=== PATIENT | female | born 1945 | race Caucasian/White ===

== ENCOUNTER 2019-10-28 17:06 | Emergency (ER) | payer MEDICARE, MEDICAID, SELFPAY ==
[2019-10-28 17:10] VITALS: BP 143/98; PULSE 101; RESP 18; TEMP 36.7; O2SAT 97; BMI 21.1
--- NOTE | 2019-10-28 17:21 | ED_ITS ---
Entered by Estrellita Finch, acting as scribe for Oct 28, 2019 17:06 HPI - Nausea/Vomiting/Diarrhea General: Chief complaint: Nausea/Vomiting/Diarrhea Stated complaint: N/D Time Seen by Provider: 10/28/19 17:18 Source: patient, family and RN notes reviewed Mode of arrival: ambulatory Limitations: altered mental status History of Present Illness: HPI Narrative: 74 yo female presents to ED with complaints of vomiting since last night and diarrhea today. The patient's daughter stated the patient has Alzheimer's and when she gets ill she gets really off when she becomes ill. The patient states she aches. MD elicited complaint: nausea, vomiting and diarrhea Pertinent past history: other (Alzheimer's) Onset (ago): day(s) (1) Description of vomiting: none Associated nausea: Yes Associated abdominal pain: No Location of pain: None Quality: aching Exacerbating factors: none Relieving factors: none Context: sick contacts Associated symtoms: Reports nausea; Denies chest pain, dysuria or headache(s) Treatment prior to arrival: none Review of Systems Const: Denies: fever, chills or change in appetite Eyes: Denies: blurry vision or eye discomfort ENMT: Denies: throat pain or dental pain Card: Denies: chest pain Resp: Denies: shortness of breath GI: Reports: nausea : Denies: painful urination Musc: Denies: neck pain or back pain Skin/Breast: Denies: rash Neuro: Denies: headache Psych: Denies: depression Robbie/Lymph: Denies: easy bruising All/Imm: Denies: hives PFSH ED PFSH: Social History Smoking and tobacco status: never smoked Physical Exam Const: COMMON NORMALS: no apparent distress, oriented x3 and healthy appearing HENMT: COMMON NORMALS: normocephalic and head/scalp atraumatic HEAD & SCALP: normocephalic and atraumatic Eye: COMMON NORMALS: PERRL and EOMs intact bilaterally PUPIL: Yes PERRL Neck/C-Spine: COMMON NORMALS: full ROM and supple Chest: COMMONS NORMALS: inspection of chest normal and palpation of chest normal Resp: COMMON NORMALS: normal respiratory effort, no retractions, no use of accessory muscles and clear to auscultation bilaterally AUSCULTATION: clear to auscultation bilaterally Cardio: COMMON NORMALS: regular rate, regular rhythm and no murmurs RATE: regular rate RHYTHM: regular rhythm GI: COMMON NORMALS: normal to inspection, nondistended, normoactive bowel sounds, soft to palpation, non-tender and no masses PALPATION: Yes soft Extremity: COMMON NORMALS: normal to inspection and full ROM Neuro: COMMON NORMALS: oriented x3, moves all extremities and no focal motor deficits Psych: COMMON NORMALS: mental status grossly normal, thought process normal and cooperative THOUGHT PROCESS: normal thought process Skin: COMMON NORMALS: no rashes or lesions noted and no wounds GENERAL SKIN EXAM: no rashes or lesions noted Course Vital Signs: Vital signs: Vital Signs Temperature 98.0 F 10/28/19 17:10 Pulse Rate 101 H 10/28/19 17:10 Respiratory Rate 18 10/28/19 17:10 Blood Pressure 143/98 10/28/19 17:10 Pulse Oximetry 97 10/28/19 17:10 MDM - Nausea/Vomiting/Diarrhea MDM Narrative: Medical decision making narrative: Patient presents here with vomiting that is since resolved and she is much improved after Zofran. Patient does have urinary tract infection. Patient given IV antibiotics here and will prescribe Keflex along with Zofran for home. Abdominal exam here is benign. Patient is well-appearing and is stable for discharge. Patient is return if worsening. Lab Data: Labs: Lab Results 10/28/19 10/28/19 10/28/19 Range/Units 16:52 16:52 18:31 WBC 5.7 (4.0-10.0) 10^3/ uL RBC 4.24 (4.1-5.3) 10^6/u L Hgb 12.4 (11.5-15.3) g/dL Hct 38.4 (37.0-47.0) % MCV 90.6 (81-99) fL MCH 29.2 (28.0-34.0) pg MCHC 32.3 (30.0-36.0) g/dL RDW 15.0 (12.1-15.1) % Plt Count 247 (130-400) 10^3/c mm MPV 10.4 (7.4-10.4) fL Neut % (Auto) 89.4 % Lymph % (Auto) 5.2 % [place] % (Auto) 4.9 % Eos % (Auto) 0.0 % Baso % (Auto) 0.2 % Neut # (Auto) 5.1 (1.8-7.7) 10^3/u L Lymph # (Auto) 0.3 L (0.8-4.8) 10^3/u L [place] # (Auto) 0.3 (0.2-0.9) 10^3/u L Eos # (Auto) 0.0 (0.0-0.8) 10^3/u L Baso # (Auto) 0.0 (0.0-0.1) 10^3/u L Nucleated RBC % (a uto) 0 % Nucleated RBCs # 0.0 /100WBC Sodium 129 L (136-145) mmol/L Potassium 4.2 (3.5-5.1) mmol/L Chloride 93 L (98-107) mmol/L Carbon Dioxide 25 (22-29) mmol/L Anion Gap 15.2 (5-19) BUN 28 H (8-23) mg/dL Creatinine 0.8 (0.5-0.9) mg/dL Glucose 226 H (65-115) mg/dL Calcium 9.2 (8.5-10.5) mg/dL Total Bilirubin 0.2 (0.15-1.2) mg/dL AST 12 (0-32) U/L ALT 14 (0-33) U/L Alkaline Phosphata se 80 (35-105) IU/L Total Protein 6.4 L (6.6-8.7) g/dL Albumin 3.5 (3.5-5.2) g/dL Globulin 2.9 (1.3-4.6) g/dL Lipase 13 (13-60) U/L Urine Color (Yellow) Urine Appearance (CLEAR) Urine pH (5-7) Ur Specific Gravit y (1.005-1.030) Urine Protein (Negative) Urine Glucose (UA) (Normal) Urine Ketones (Negative) Urine Blood (Negative) Urine Nitrate (Negative) Urine Bilirubin (NEGATIVE) Urine Urobilinogen (Negative) mg/dL Ur Leukocyte Gypsy ase (Negative) Urine RBC (0-2) /hpf Urine WBC (0-5) /hpf Ur Squamous Epith Cells (0-5) Urine Bacteria (NONE) Influenza Type A A g Negative (Negative) POC Influenza B Ag Negative (Negative) 10/28/19 Range/Units 19:27 WBC (4.0-10.0) 10^3/ uL RBC (4.1-5.3) 10^6/u L Hgb (11.5-15.3) g/dL Hct (37.0-47.0) % MCV (81-99) fL MCH (28.0-34.0) pg MCHC (30.0-36.0) g/dL RDW (12.1-15.1) % Plt Count (130-400) 10^3/c mm MPV (7.4-10.4) fL Neut % (Auto) % Lymph % (Auto) % [place] % (Auto) % Eos % (Auto) % Baso % (Auto) % Neut # (Auto) (1.8-7.7) 10^3/u L Lymph # (Auto) (0.8-4.8) 10^3/u L [place] # (Auto) (0.2-0.9) 10^3/u L Eos # (Auto) (0.0-0.8) 10^3/u L Baso # (Auto) (0.0-0.1) 10^3/u L Nucleated RBC % (a uto) % Nucleated RBCs # /100WBC Sodium (136-145) mmol/L Potassium (3.5-5.1) mmol/L Chloride (98-107) mmol/L Carbon Dioxide (22-29) mmol/L Anion Gap (5-19) BUN (8-23) mg/dL Creatinine (0.5-0.9) mg/dL Glucose (65-115) mg/dL Calcium (8.5-10.5) mg/dL Total Bilirubin (0.15-1.2) mg/dL AST (0-32) U/L ALT (0-33) U/L Alkaline Phosphata se (35-105) IU/L Total Protein (6.6-8.7) g/dL Albumin (3.5-5.2) g/dL Globulin (1.3-4.6) g/dL Lipase (13-60) U/L Urine Color Geri (Yellow) Urine Appearance Cloudy (CLEAR) Urine pH 5 (5-7) Ur Specific Gravit y 1.020 (1.005-1.030) Urine Protein Trace (Negative) Urine Glucose (UA) 2+ (Normal) Urine Ketones 1+ H (Negative) Urine Blood 3+ H (Negative) Urine Nitrate Positive H (Negative) Urine Bilirubin Neg (NEGATIVE) Urine Urobilinogen Norm (Negative) mg/dL Ur Leukocyte Gypsy ase 2+ H (Negative) Urine RBC 5-10 H (0-2) /hpf Urine WBC >100 H (0-5) /hpf Ur Squamous Epith Cells 5-10 H (0-5) Urine Bacteria 3+ H (NONE) Influenza Type A A g (Negative) POC Influenza B Ag (Negative) Discharge Plan Discharge Patient Disposition: Home, Self-Care Clinical Impression: Acute UTI Vomiting Qualifiers: Vomiting type: unspecified Vomiting Intractability: non-intractable Nausea presence: without nausea Qualified Code(s): R11.11 - Vomiting without nausea Condition: Stable Prescriptions: New Zofran 4 mg tablet 4 mg PO QID PRN (Reason: nausea and vomiting) Qty: 14 RF: 0 Keflex 500 mg capsule 500 mg PO Q6H 7 Days Qty: 28 RF: 0 No Action Aspir-81 81 mg Tablet,Delayed Release (Dr/Ec) 81 mg PO DAILY RF: 0 risperidone 0.5 mg tablet 0.5 mg PO DAILY RF: 0 Novolog Flexpen U-100 Insulin 100 unit/mL (3 mL) insulin pen See Rx Instructions .ROUTE .COMPLEX RF: 0 metoprolol tartrate 25 mg tablet 25 mg PO BID RF: 0 Tresiba FlexTouch U-100 100 unit/mL (3 mL) insulin pen 12 unit SUBCUT QAM RF: 0 Discharge Orders: Discharge Order (Routine); Ordered 10/28/19 Ordered By: Mary Vora Referrals: Avel Langley DO [Primary Care Provider] - 4-7 days Discharge Diet: Advance as tolerated Discharge Activity: Resume usual activity Patient Instructions: Urinary Tract Infection in Women (ED) Coding Level of Care Code ED Cath Lab Radiological Technologist for Chg Fwd Exam Comprehensive The documentation recorded by the Josette valdez Valerie R accurately reflects the service I personally performed and the decisions made by Vielka castro Korby, MD Oct 28, 2019 17:06
[2019-10-28 17:59] LABS: Basophils % 0.2 %; Hematocrit 38.4 % (37.0-47.0); Hemoglobin 12.4 g/dL (11.5-15.3); Lymphocytes # 0.3 10^3/uL (0.8-4.8); Lymphocytes % 5.2 %; Mean Corpuscular HGB Conc 32.3 g/dL (30.0-36.0); Mean Corpuscular Hemoglobin 29.2 pg (28.0-34.0); Mean Corpuscular Volume 90.6 fL (81-99); Mean Platelet Volume 10.4 fL (7.4-10.4); Monocytes # 0.3 10^3/uL (0.2-0.9); Monocytes % 4.9 %; Neutrophils # 5.1 10^3/uL (1.8-7.7); Neutrophils % 89.4 %; Nucleated Red Blood Cells % 0 %; Platelet Count 247 10^3/cmm (130-400); Red Blood Count 4.24 10^6/uL (4.1-5.3); White Blood Count 5.7 10^3/uL (4.0-10.0)
[2019-10-28] MEDS: ondansetron 2 mg/ML SDV 2 mL 4 MG IVP (18:10)
[2019-10-28] MEDS: sodium chloride 0.9% 1,000 ML 999 ML IV (18:10)
[2019-10-28 18:20] LABS: Alanine Aminotransferase 14 U/L (0-33); Albumin Level 3.5 g/dL (3.5-5.2); Alkaline Phosphatase 80 IU/L (35-105); Anion Gap 15.2 (5-19); Aspartate Amino Transferase 12 U/L (0-32); Blood Urea Nitrogen 28 mg/dL (8-23); Calcium 9.2 mg/dL (8.5-10.5); Carbon Dioxide 25 mmol/L (22-29); Chloride 93 mmol/L (98-107); Globulin 2.9 g/dL (1.3-4.6); Glucose 226 mg/dL (65-115); Lipase 13 U/L (13-60); Potassium 4.2 mmol/L (3.5-5.1); Sodium 129 mmol/L (136-145); Total Bilirubin 0.2 mg/dL (0.15-1.2); Total Protein 6.4 g/dL (6.6-8.7)
[2019-10-28 19:28] LABS: Influenza A by IFA Negative (Negative); Influenza B by IFA Negative (Negative)
[2019-10-28 19:58] LABS: Glucose Urine UA 2+ (Normal); Ketones Urine 1+ (Negative); Protein Urine Trace (Negative); Urine Appearance Cloudy (CLEAR); Urine Color Amber (Yellow); pH Urine 5 (5-7)
[2019-10-28 19:59] LABS: Add Urine Microscopic? YES; Bilirubin Urine Neg (NEGATIVE); Blood Urine 3+ (Negative); Leukocyte Esterase Urine 2+ (Negative); Nitrate Urine Positive (Negative); Urobilinogen Urine Norm (Negative)
[2019-10-28 20:00] LABS: Add Urine Culture? Yes; Bacteria Urine 3+; WBC Urine >100 /hpf (0-5)
[2019-10-28] MEDS: cefTRIAXone 1,000 MG in sodium chloride 0.9% (plus) 50 ML 100 MG IV (20:15)
[2019-10-28 20:38] VITALS: BP 119/67; PULSE 67; RESP 16; O2SAT 95
== END 2019-10-28 20:39 | disposition home or self-care (01) ==
PROVIDERS: Emergency Provider Emergency Medicine; Family Provider Internal Medicine; PCP Internal Medicine
DX: N39.0 Urinary tract infection, site not specified (principal); R11.10 Vomiting, unspecified; G30.9 Alzheimer's disease, unspecified; F02.80 Dementia in other diseases classified elsewhere, unspecified severity, without behavioral disturbance, psychotic disturbance, mood disturbance, and anxiety
CPT/HCPCS: 36415; 80053; 81001; 83690; 85025; 87077; 87086; 87186; 87804; 96365; 96375; 99283; A9270; J0696; J2405; J7030

== ENCOUNTER 2019-11-15 14:32 | Outpatient (CLI) | payer MEDICARE, MEDICAID, SELFPAY ==
--- NOTE | 2019-11-15 | XR_ITS ---
WS: [id number] XR chest 2V* [id number] REASON FOR EXAM: COUGH FINDINGS: Comparisons were made to July 14, 2019. The pneumonia described on that exam is clear. There is hyper aerated lungs with flattening of the hemidiaphragm suggesting chronic obstructive pulm onary disease. There is evidence of normal heart and mediastinum. XR/XR chest 2V* [id number] IMPRESSION: Chronic obstructive pulmonary disease.
== END 2019-11-15 14:33 | disposition home or self-care (01) ==
LOC: RADOUTREAD 11-16 07:26
PROVIDERS: Family Provider Internal Medicine; PCP Internal Medicine; Visit Provider Nurse Practitioner Family
DX: Z76.89 Persons encountering health services in other specified circumstances (principal)

== ENCOUNTER 2020-08-07 11:00 | Emergency (ER) | payer MEDICARE, MEDICAID, SELFPAY ==
[2020-08-07 11:07] VITALS: BP 111/61; PULSE 81; RESP 18; TEMP 36.5; BMI 23.0
--- NOTE | 2020-08-07 11:10 | XR_ITS ---
WS: [id number] PORTABLE CHEST HISTORY: cough COMPARISON: 11/15/2019 Hyperinflated lungs. No pneumonia. Normal vasculature. No pleural effusion or pneumothorax. Cardiac size: Normal. Mediastinum/Aorta: Mild atherosclerosis aorta. No osseous abnormality seen. XR/XR chest 1V portable [id number] IMPRESSION: Mild chronic emphysema. No pneumonia.
--- NOTE | 2020-08-07 11:23 | W.ED.NAVMDI ---
HPI - Nausea/Vomiting/Diarrhea General: Chief complaint: Nausea/Vomiting/Diarrhea Stated complaint: coughing/ N,V Time Seen by Provider: 08/07/20 11:04 Source: family Mode of arrival: ambulatory Limitations: altered mental status History of Present Illness: HPI Narrative: 74-year-old female has end-stage dementia family states is nausea vomiting, choking episodes. States that she appears dehydrated and they are concerned she may have aspirated. PCP is wanting to place patient on hospice but patient's daughter states she wants to make sure she does not have pneumonia or anything treatable. Patient is not verbal so no history is available from her. She had no fevers. Associated nausea: Yes Associated symtoms: Reports nausea Review of Systems General: Reports: ROS unobtainable due to mental status Resp: Reports: non-productive cough GI: Reports: nausea and vomiting PFSH ED PFSH: Social History Smoking and tobacco status: never smoked Physical Exam Const: COMMON NORMALS: no acute distress; negative for patient oriented x3 GENERAL APPEARANCE: ill appearing HENMT: COMMON NORMALS: normocephalic and atraumatic HEAD & SCALP: normocephalic and atraumatic Eye: COMMON NORMALS: Equal, round and reactive pupils present and EOMs intact bilaterally PUPIL: Yes Equal, round and reactive pupils present Neck/C-Spine: COMMON NORMALS: full ROM and supple Chest: COMMONS NORMALS: normal inspection of the chest and normal palpation of entire chest wall Resp: COMMON NORMALS: normal respiratory effort, No retractions, No use of accessory muscles and clear to auscultation bilaterally AUSCULTATION: clear to auscultation bilaterally Cardio: COMMON NORMALS: regular rate, regular rhythm and No murmurs present (Cardio) RATE: regular rate RHYTHM: regular rhythm GI: COMMON NORMALS: Normal to inspection, nondistended, normoactive bowel sounds present, Soft to palpation, non-tender and no masses PALPATION: Yes Soft to palpation Extremity: COMMON NORMALS: normal to inspection and full ROM Neuro: COMMON NORMALS: moves all extremities and no focal motor deficits; negative for patient oriented x3 Psych: COMMON NORMALS: cooperative; negative for mental status grossly normal and negative for Normal thought process present THOUGHT PROCESS: abnormal Skin: COMMON NORMALS: no rashes or lesions noted and no wounds GENERAL SKIN EXAM: no rashes or lesions noted Course Vital Signs: Vital signs: Vital Signs Temperature 97.7 F 08/07/20 11:07 Pulse Rate 83 08/07/20 12:01 Respiratory Rate 15 08/07/20 12:01 Blood Pressure 111/61 08/07/20 12:01 Pulse Oximetry 95 08/07/20 12:01 MDM - Nausea/Vomiting/Diarrhea MDM Narrative: Medical decision making narrative: Joycelyn presents here with dehydration with acute kidney injury. She has an elevated creatinine. We will get her IV fluids here. A long talk with daughter she would like to try Zofran at home and to have her drink out of a straw. She said she will likely going to pursue hospice due to her severe dementia. Patient discharged and follow-up with PCP and return if she changes her mind about admission or if she is worsening. Lab Data: Labs: Lab Results 08/07/20 08/07/20 08/07/20 Range/Units 12:15 12:15 13:20 WBC 10.9 H (4.0-10.0) 10^3/ uL RBC 4.24 (4.1-5.3) 10^6/u L Hgb 12.6 (11.5-15.3) g/dL Hct 37.4 (37.0-47.0) % MCV 88.2 (81-99) fL MCH 29.7 (28.0-34.0) pg MCHC 33.7 (30.0-36.0) g/dL RDW 14.8 (12.1-15.1) % Plt Count 258 (130-400) 10^3/c mm MPV 11.0 H (7.4-10.4) fL Neut % (Auto) 85.1 % Lymph % (Auto) 6.5 % [place] % (Auto) 7.7 % Eos % (Auto) 0.1 % Baso % (Auto) 0.1 % Neut # (Auto) 9.30 H (1.8-7.7) 10^3/u L Lymph # (Auto) 0.7 L (0.8-4.8) 10^3/u L [place] # (Auto) 0.8 (0.2-0.9) 10^3/u L Eos # (Auto) 0.0 (0.0-0.8) 10^3/u L Baso # (Auto) 0.0 (0.0-0.1) 10^3/u L Nucleated RBC % (a uto) 0 % Nucleated RBCs # 0.0 /100WBC Sodium 128 L (136-145) mmol/L Potassium 4.8 (3.5-5.1) mmol/L Chloride 91 L (98-107) mmol/L Carbon Dioxide 18 L (22-29) mmol/L Anion Gap 23.8 H (5-19) BUN 46 H (8-23) mg/dL Creatinine 2.7 H (0.5-0.9) mg/dL GFR Calculation Not Reportable Glucose 457 H (65-115) mg/dL Calculated Osmolal ity 298 H (285-295) mOsm/k g Calcium 9.5 (8.5-10.5) mg/dL Total Bilirubin 0.2 (0.15-1.2) mg/dL AST 40 H (0-32) U/L ALT 27 (0-33) U/L Alkaline Phosphata se 116 H (35-105) IU/L Total Protein 6.7 (6.6-8.7) g/dL Albumin 3.7 (3.5-5.2) g/dL Globulin 3.0 (1.3-4.6) g/dL Urine Color Yellow (Yellow) Urine Appearance Sl hazy (CLEAR) Urine pH 5.0 (5-7) Ur Specific Gravit y 1.015 (1.005-1.030) Urine Protein Neg (Negative) Urine Glucose (UA) 4+ H (Normal) Urine Ketones Negative (Negative) Urine Blood 2+ H (Negative) Urine Nitrate Negative (Negative) Urine Bilirubin Neg (Negative) Urine Urobilinogen Norm (Negative) mg/dL Ur Leukocyte Gypsy ase Negative (Negative) Urine RBC 0-4 H (0-2) /hpf Urine WBC 25-40 H (0-5) /hpf Ur Squamous Epith Cells 0-4 H (0-5) /hpf Amorphous Sediment Not Reportable Urine Bacteria Trace (NONE) /hpf Urine Yeast 2+ H /hpf Discharge Plan Discharge Patient Disposition: Home Clinical Impression: Acute kidney injury, Dehydration Condition: Stable Prescriptions: New ondansetron 4 mg tablet,disintegrating 4 mg PO Q6H PRN (Reason: nausea and vomiting) Qty: 14 RF: 0 No Action Lasix 20 mg Tablet 20 mg PO DAILY PRN (Reason: Edema) RF: 0 aspirin [Aspir-81] 81 mg Tablet,Delayed Release (Dr/Ec) 81 mg PO DAILY@08 RF: 0 risperidone 0.5 mg tablet 1 mg PO DAILY@19 RF: 0 insulin aspart U-100 [Novolog Flexpen U-100 Insulin] 100 unit/mL (3 mL) insulin pen See Rx Instructions .ROUTE .COMPLEX RF: 0 metoprolol tartrate 25 mg tablet 25 mg PO Q12H RF: 0 Tresiba FlexTouch U-100 100 unit/mL (3 mL) insulin pen 12 unit SUBCUT DAILY@1900 RF: 0 Discharge Orders: Discharge ED (Routine); Ordered 08/07/20 Ordered By: Mary Vora Referrals: Avel Langley DO [Primary Care Provider] - Discharge Diet: Advance as tolerated Discharge Activity: Resume usual activity Patient Instructions: Dehydration (ED) Coding Level of Care Code ED Cold Header Operator for Chg Fwd Exam Comprehensive
[2020-08-07] MEDS: ondansetron 2 mg/ML SDV 2 mL 4 MG IVP (11:59)
[2020-08-07] MEDS: sodium chloride 0.9% 1,000 ML 999 ML IV ×2 (11:59→13:49)
[2020-08-07 12:01] VITALS: BP 111/61; PULSE 83; RESP 15; O2SAT 95
[2020-08-07 12:24] LABS: Basophils % 0.1 %; Eosinophils % 0.1 %; Hematocrit 37.4 % (37.0-47.0); Hemoglobin 12.6 g/dL (11.5-15.3); Lymphocytes # 0.7 10^3/uL (0.8-4.8); Lymphocytes % 6.5 %; Mean Corpuscular HGB Conc 33.7 g/dL (30.0-36.0); Mean Corpuscular Hemoglobin 29.7 pg (28.0-34.0); Mean Corpuscular Volume 88.2 fL (81-99); Monocytes # 0.8 10^3/uL (0.2-0.9); Monocytes % 7.7 %; Neutrophils % 85.1 %; Nucleated Red Blood Cells % 0 %; Platelet Count 258 10^3/cmm (130-400); Red Blood Count 4.24 10^6/uL (4.1-5.3); Red Cell Distribution Width 14.8 % (12.1-15.1); White Blood Count 10.9 10^3/uL (4.0-10.0)
[2020-08-07 12:39] LABS: Alanine Aminotransferase 27 U/L (0-33); Albumin Level 3.7 g/dL (3.5-5.2); Alkaline Phosphatase 116 IU/L (35-105); Anion Gap 23.8 (5-19); Aspartate Amino Transferase 40 U/L (0-32); Blood Urea Nitrogen 46 mg/dL (8-23); Calcium 9.5 mg/dL (8.5-10.5); Carbon Dioxide 18 mmol/L (22-29); Chloride 91 mmol/L (98-107); Glucose 457 mg/dL (65-115); Osmolality Calculated 298 mOsm/kg (285-295); Potassium 4.8 mmol/L (3.5-5.1); Sodium 128 mmol/L (136-145); Total Bilirubin 0.2 mg/dL (0.15-1.2); Total Protein 6.7 g/dL (6.6-8.7)
[2020-08-07 12:44] LABS: Creatinine Clr Calc Pharmacy 18.3627
[2020-08-07 13:42] LABS: Add Urine Microscopic? YES; Bilirubin Urine Neg (Negative); Blood Urine 2+ (Negative); Glucose Urine UA 4+ (Normal); Ketones Urine Negative (Negative); Leukocyte Esterase Urine Negative (Negative); Nitrate Urine Negative (Negative); Protein Urine Neg (Negative); RBC Urine 0-4 /hpf (0-2); Specific Gravity, Urine 1.015 (1.005-1.030); Urine Appearance SL Hazy (CLEAR); Urine Color Yellow (Yellow); Urobilinogen Urine Norm (Negative)
[2020-08-07 13:43] LABS: Add Urine Culture? Yes; Bacteria Urine TRACE /hpf; Other Sediment, Urine BUD YEAST W/HYPHAE; Squamous Epithelial Cell Urine 0-4 /hpf (0-5); WBC Urine 25-40 /hpf (0-5)
[2020-08-07 14:40] VITALS: BP 109/61; PULSE 94; RESP 14; O2SAT 92
== END 2020-08-07 15:10 | disposition home or self-care (01) ==
PROVIDERS: Emergency Provider Emergency Medicine; PCP Internal Medicine
DX: N17.9 Acute kidney failure, unspecified (principal); E86.0 Dehydration; Z79.82 Long term (current) use of aspirin; Z79.4 Long term (current) use of insulin; Z79.899 Other long term (current) drug therapy
CPT/HCPCS: 12345; 71045; 80053; 81001; 85025; 87077; 87086; 87186; 96361; 96374; 99283; J2405; J7030